=== PATIENT | female | born 1940 | race Caucasian/White ===

== ENCOUNTER → 2017-05-05 | Outpatient (CLI) | payer OTHER, BC ==
[~2017-05-05] MED LIST: ACETAMINOPHEN325 M1 PO; CARVEDILOL PO; CARVEDILOL12.5 MG PO; CENTRUM SILVER1 EAC4 PO; CIPRO250 M1 PO; IRON325 PO; K-DUR 20 MEQ T20 MEQ PO; KLOR-CON 1010 MEQ PO; MAGNESIUM OXID400 MG PO; METFORMIN HCL500 MG PO; METFORMIN PO; PEPCID20 MG PO; PROTONIX40 M1 PO; REGLAN 5 MG TAB5 MG PO; TYLENOL325 MG PO; VITAMIN D3400 UNIT PO; ZOCOR 10 MG TAB10 M1 PO; ZOCOR20 MG PO
== END ==
LOC: MRI 08:40
DX: G30.9 Alzheimer's disease, unspecified (principal); F02.80 Dementia in other diseases classified elsewhere, unspecified severity, without behavioral disturbance, psychotic disturbance, mood disturbance, and anxiety

== ENCOUNTER 2017-11-29 16:25 | Inpatient (IN) | payer OTHER, BC ==
[~2017-11-29] VITALS: Ht 170.2 cm; Wt 70.3 kg
--- NOTE | ~2017-11-29 | HC ---
[facility] [place] [address] CONSULTATION Name: MATEO RIVERA Room #: 404-P ADM IN M.R.#: [id number] Admission: 11/29/17 Attend Phys: Sami Briones MD Discharge: Date of : 40 Report #: [id number] THIS REPORT FOR: //name// CC: Sami Lopez DATE OF SERVICE: 11/30/2017 ATTENDING PHYSICIAN: Dr. Alonso. REASON FOR CONSULTATION: Zepwc-is-unhyhes kidney disease. HISTORY OF PRESENT ILLNESS: The patient is well known to our service, previously admitted with acute renal failure secondary to volume depletion, has chronic kidney disease, is well-known and has been seen in our office as well. She received Bactrim, developed a rash and confusion with eosinophilia, was admitted. Her creatinine is 2.0, probably a little bit above her baseline but urinalysis did not reveal any leukocyturia. PAST MEDICAL HISTORY: Known chronic dementia, stays at a facility; known CKD as mentioned. MEDICATIONS: At the facility include magnesium oxide 400 mg b.i.d., Pepcid 20 mg daily, metoclopramide 5 mg b.i.d., potassium 10 mEq daily, carvedilol 6.25 mg b.i.d., alprazolam p.r.n., metformin 500 mg daily, memantine 14 mg daily, rivastigmine 6 mg b.i.d. PAST SURGICAL HISTORY: Includes previous hiatal hernias, right leg surgery, appendectomy. FAMILY HISTORY: Noncontributory. REVIEW OF SYSTEMS: Unable to do due to her marked mental status changes. PHYSICAL EXAMINATION: GENERAL: This is an ill-appearing woman. SKIN: She has a remarkable diffuse macular erythematous rash over her face, trunk and extremities. SKELETAL: Shows her to be well-developed, well-nourished, really not moving her legs much. HEENT: Extraocular movements appear to be full. Mucous membranes dry. NECK: Supple. CHEST: Clear. HEART: Regular. [facility] [address] [place] [address] CONSULTATION Name: MATEO RIVERA Room #: 404-P ADM IN M.R.#: [id number] Admission: 11/29/17 Attend Phys: Sami Briones MD Discharge: Date of : 40 Report #: [id number] ABDOMEN: Soft and nontender. EXTREMITIES: Show no edema. NEUROLOGIC: She is oriented to place only and that is hospital, not specific hospital and she is weak. ASSESSMENT AND PLAN: 1. Omqfw-nh-zaubxht kidney disease. Creatinine is up. She has had an obvious reaction to the Bactrim. She has some maculopapular rash. She did not have white cells in the urine. Her creatinine may be up just a slight bit from baseline. A little IV fluids will probably make some sense here. 2. Acute dementia with acute mental status changes. By: [id number] Alfa Hodgson MD /nt
[2017-11-29 16:27] VITALS: BP 112/65
[2017-11-29 17:41] LABS: URINE BILIRUBIN NEGATIVE (Negative); URINE BLOOD TRACE (Negative); URINE CLARITY CLEAR; URINE COLOR YELLOW; URINE GLUCOSE-RANDOM* NEGATIVE (Negative); URINE KETONES NEGATIVE (Negative); URINE LEUKOCYTES NEGATIVE (Negative); URINE NITRITE NEGATIVE (Negative); URINE PROTEIN (DIPSTICK) TRACE (Negative); URINE SPECIFIC GRAVITY >= 1.030 (1.005-1.035); URINE UROBILINOGEN 0.2 E.U./dl (0.2-1.0)
[2017-11-29 17:50] LABS: AMP/METHAMP Negative (Negative); BARBITURATES Negative (Negative); BENZODIAZEPINES POSITIVE (Negative); COCAINE Negative (Negative); METHADONE Negative (Negative); OPIATES Negative (Negative); PCP Negative (Negative)
[2017-11-29] MEDS ORDERED: ASPIRIN81 M2 PO (18:27)
[2017-11-29] MEDS ORDERED: METFORMIN HCL500 MG PO (18:27)
[2017-11-29] MEDS ORDERED: NAMENDA XR14 MG PO (18:28)
[2017-11-29] MEDS ORDERED: RIVASTIGMINE6 MG PO (18:29)
[2017-11-29] MEDS ORDERED: ONDANSETRON HCL4 M2 PO (18:29)
[2017-11-29 18:55] LABS: HEMATOCRIT 40.8 % (37.0-47.0); HEMOGLOBIN 13.5 gm/dL (12.0-15.0); MCH 28.4 pg (26.0-34.0); MCHC 33.1 g/dL (28.0-37.0); MCV 85.8 fL (80.0-100.0); PLATELET COUNT 112 thou/uL (150-400); RBC 4.76 mil/uL (4.20-5.00); RDW 13.3 % (10.5-14.5)
[2017-11-29 19:01] LABS: ANION GAP 7 mmol/L (7-16); BUN 40 mg/dL (7-18); CALCIUM 8.5 mg/dL (8.5-10.1); CHLORIDE 101 mmol/L (98-107); CO2 23 mmol/L (21-32); CREATININE 2.4 mg/dL (0.6-1.0); GLUCOSE 87 mg/dL (74-106); POTASSIUM 4.7 mmol/L (3.5-5.1); SODIUM 131 mmol/L (136-145)
[2017-11-29 19:08] LABS: DIRECT BILIRUBIN < 0.1 mg/dL (<0.1-0.3); LIPASE 125 U/L (73-393); SGOT 37 U/L (15-37); SGPT 17 U/L (30-65); TOTAL BILIRUBIN 0.2 mg/dL (<0.1-1.0); TOTAL PROTEIN 6.9 g/dL (6.4-8.2)
[2017-11-29 19:23] LABS: ABSOLUTE NEUTROPHILS 2.6 thou/uL (1.4-8.2)
[2017-11-29 19:48] VITALS: BP 113/81
[2017-11-29 20:00] VITALS: BP 120/64
[2017-11-30] MEDS ORDERED: XANAX 0.25 MG0.25 MG PO ×2 (00:48→00:49)
[2017-11-30 04:00] VITALS: BP 127/57
[2017-11-30 05:56] LABS: HEMATOCRIT 38.9 % (37.0-47.0); HEMOGLOBIN 12.8 gm/dL (12.0-15.0); MCH 28.5 pg (26.0-34.0); MCV 86.4 fL (80.0-100.0); RBC 4.5 mil/uL (4.20-5.00); RDW 13.3 % (10.5-14.5); WBC 4.2 thou/uL (4.0-11.0)
[2017-11-30 06:14] LABS: ALBUMIN 2.7 g/dL (3.4-5.0); POTASSIUM 4.4 mmol/L (3.5-5.1); TOTAL BILIRUBIN 0.2 mg/dL (<0.1-1.0); TOTAL PROTEIN 6.1 g/dL (6.4-8.2)
[2017-11-30 08:29] VITALS: BP 108/61
[2017-11-30 11:23] VITALS: BP 113/59
[2017-11-30 15:31] VITALS: BP 108/57
[2017-11-30 19:08] VITALS: BP 122/65
[2017-12-01 04:46] VITALS: BP 136/79
[2017-12-01 06:27] LABS: ALBUMIN 2.5 g/dL (3.4-5.0); CALCIUM 8.4 mg/dL (8.5-10.1); CREATININE 1.6 mg/dL (0.6-1.0); PHOSPHORUS 3.4 mg/dL (2.5-4.9)
[2017-12-01 08:29] VITALS: BP 151/82
[2017-12-01 16:00] VITALS: BP 115/91
[2017-12-01 20:11] VITALS: BP 138/83
[2017-12-02 03:52] LABS: ALBUMIN 2.5 g/dL (3.4-5.0); CALCIUM 8.5 mg/dL (8.5-10.1); CREATININE 1.1 mg/dL (0.6-1.0); PHOSPHORUS 3.1 mg/dL (2.5-4.9); POTASSIUM 4.4 mmol/L (3.5-5.1)
[2017-12-02 04:44] VITALS: BP 147/70
[2017-12-02 08:44] VITALS: BP 97/55
[2017-12-02] MEDS ORDERED: CEFUROXIME250 MG PO (09:04)
[2017-12-02] MEDS ORDERED: ALPRAZOLAM 0.0.25 M1 PO (09:04)
[2017-12-02 14:32] VITALS: BP 147/70
[2017-12-02 16:47] VITALS: BP 164/94
== END 2017-12-02 18:06 | DRG 682 ==
LOC: ER 16:25 → 4N 19:34 → EROBS 19:34 → 4N 20:12
PROVIDERS: Hospitalist; Internal Medicine Nephrology; Nurse Practitioner
DX: N17.9 Acute kidney failure, unspecified (principal); E43 Unspecified severe protein-calorie malnutrition; G93.40 Encephalopathy, unspecified; E87.2 Acidosis; F03.90 Unspecified dementia, unspecified severity, without behavioral disturbance, psychotic disturbance, mood disturbance, and anxiety; N18.3 Chronic kidney disease, stage 3 (moderate); Z60.2 Problems related to living alone; R41.0 Disorientation, unspecified; N10 Acute pyelonephritis; E11.22 Type 2 diabetes mellitus with diabetic chronic kidney disease; I12.9 Hypertensive chronic kidney disease with stage 1 through stage 4 chronic kidney disease, or unspecified chronic kidney disease; Z88.2 Allergy status to sulfonamides; Z88.8 Allergy status to other drugs, medicaments and biological substances; Z90.49 Acquired absence of other specified parts of digestive tract; Z79.82 Long term (current) use of aspirin; Z79.899 Other long term (current) drug therapy; Z68.24 Body mass index [BMI] 24.0-24.9, adult
CPT/HCPCS: 10790

== ENCOUNTER 2017-12-05 11:07 | Inpatient (IN) | payer OTHER, BC ==
[~2017-12-05] VITALS: Ht 170.2 cm; Wt 70.3 kg
[~2017-12-05 11:07] MED LIST changes: +ALPRAZOLAM 0.0.25 M1 PO; +ASPIRIN81 M2 PO; +CEFUROXIME250 MG PO; +NAMENDA XR14 MG PO; +ONDANSETRON HCL4 M2 PO; +RIVASTIGMINE6 MG PO; +XANAX 0.25 MG0.25 MG PO
[2017-12-05 11:09] VITALS: BP 133/86
[2017-12-05 11:57] LABS: HEMATOCRIT 40.7 % (37.0-47.0); HEMOGLOBIN 13.4 gm/dL (12.0-15.0); MCH 28.1 pg (26.0-34.0); MCHC 32.9 g/dL (28.0-37.0); MCV 85.3 fL (80.0-100.0); PLATELET COUNT 256 thou/uL (150-400); RBC 4.77 mil/uL (4.20-5.00); RDW 13.1 % (10.5-14.5); WBC 11.2 thou/uL (4.0-11.0)
[2017-12-05 12:09] LABS: CALCIUM 9.8 mg/dL (8.5-10.1); CREATININE 1.2 mg/dL (0.6-1.0); POTASSIUM 4.9 mmol/L (3.5-5.1)
[2017-12-05 12:17] LABS: ALBUMIN 3.1 g/dL (3.4-5.0); DIRECT BILIRUBIN 0.1 mg/dL (<0.1-0.3); TOTAL BILIRUBIN 0.6 mg/dL (<0.1-1.0); TOTAL PROTEIN 6.8 g/dL (6.4-8.2)
[2017-12-05 12:30] LABS: ABSOLUTE NEUTROPHILS 7.8 thou/uL (1.4-8.2); PLATELET ESTIMATE NORMAL
[2017-12-05 14:23] LABS: URINE BILIRUBIN 1+ (Negative); URINE BLOOD 1+ (Negative); URINE CLARITY SL CLOUDY; URINE COLOR YELLOW; URINE GLUCOSE-RANDOM* NEGATIVE (Negative); URINE KETONES 2+ (Negative); URINE LEUKOCYTES 3+ (Negative); URINE NITRITE NEGATIVE (Negative); URINE PROTEIN (DIPSTICK) NEGATIVE (Negative); URINE UROBILINOGEN 0.2 E.U./dl (0.2-1.0)
[2017-12-05 14:29] LABS: ICTOTEST (BILI CONFIRMATORY) Negative (Negative)
[2017-12-05 14:30] LABS: SQUAMOUS >10 Many /LPF (0-3)
[2017-12-05 14:31] LABS: BACTERIA 1-9 Few /HPF (None Seen); CASTS None Seen /LPF (None Seen); CRYSTALS None Seen /LPF (None Seen); URINE RBC 0-2 Rare /HPF (0-2); URINE WBC 6-15 Few /HPF (0-5); YEAST Present (None Seen)
[2017-12-05 19:38] VITALS: BP 150/64
[2017-12-05 21:20] VITALS: BP 149/79
[2017-12-05 21:30] VITALS: BP 163/86
[2017-12-06 05:30] VITALS: BP 147/69
[2017-12-06 08:00] VITALS: BP 152/83
[2017-12-06 15:25] VITALS: BP 141/86
[2017-12-06 19:17] VITALS: BP 1443/75
[2017-12-07 03:55] VITALS: BP 129/64
[2017-12-07 06:33] LABS: HEMATOCRIT 32.7 % (37.0-47.0); MCH 29.3 pg (26.0-34.0); MCHC 34.2 g/dL (28.0-37.0); MCV 85.6 fL (80.0-100.0); PLATELET COUNT 259 thou/uL (150-400); RBC 3.82 mil/uL (4.20-5.00); WBC 9.7 thou/uL (4.0-11.0)
[2017-12-07 06:39] LABS: HEMOGLOBIN 11.2 gm/dL (12.0-15.0)
[2017-12-07 06:52] LABS: CALCIUM 8.7 mg/dL (8.5-10.1); CREATININE 1.2 mg/dL (0.6-1.0); MAGNESIUM 1.5 mg/dL (1.8-2.4); POTASSIUM 4.1 mmol/L (3.5-5.1)
[2017-12-07 07:40] LABS: ABSOLUTE NEUTROPHILS 6.7 thou/uL (1.4-8.2); ANISOCYTOSIS SLIGHT; METAMYELOCYTES 1 %; MYELOCYTES 1 %
[2017-12-07 20:00] VITALS: BP 134/73
[2017-12-08 04:00] VITALS: BP 126/70
[2017-12-08 08:12] VITALS: BP 121/107
[2017-12-08] MEDS ORDERED: XANAX 0.25 MG0.25 MG PO (13:08)
[2017-12-08] MEDS ORDERED: FLUCONAZOLE 10100 MG PO (13:11)
[2017-12-08] MEDS ORDERED: RISPERIDONE0.5 MG PO ×2 (13:11)
[2017-12-08 19:29] VITALS: BP 139/67
[2017-12-09 08:37] VITALS: BP 151/68
== END 2017-12-09 11:12 | DRG 57 ==
LOC: ER 11:07 → EROBS 12:43 → 4E 12:43 → ENTRNSPT 12-09 11:03 → EDTRNSPTSTS 12-09 11:06 → 4E 12-09 11:12
PROVIDERS: Emergency Medicine; Nurse Practitioner Adult Health
DX: G30.9 Alzheimer's disease, unspecified (principal); N39.0 Urinary tract infection, site not specified; F02.81 Dementia in other diseases classified elsewhere, unspecified severity, with behavioral disturbance; R62.7 Adult failure to thrive; I12.9 Hypertensive chronic kidney disease with stage 1 through stage 4 chronic kidney disease, or unspecified chronic kidney disease; E11.9 Type 2 diabetes mellitus without complications; E86.0 Dehydration; F41.9 Anxiety disorder, unspecified; N18.3 Chronic kidney disease, stage 3 (moderate); Z90.49 Acquired absence of other specified parts of digestive tract; Z88.2 Allergy status to sulfonamides; Z88.8 Allergy status to other drugs, medicaments and biological substances; Z79.82 Long term (current) use of aspirin; Z79.899 Other long term (current) drug therapy
CPT/HCPCS: 10084